=== PATIENT | female | born 1950 ===

== ENCOUNTER 2018-07-10 06:47 | Day surgery (SDC) | payer OTHER ==
[2018-06-26 10:48] VITALS: BMI 27.8
[~2018-07-10 06:47] MED LIST: Ciprofloxacin 0.3% OPTH SOLN OS SCH; Lactated Ringer's 500 ML IV ONE; Ofloxacin 0.3% Ophth Soln OS SCH; Tropicamide 0.5% Opht Sol OS SCH; acetaZOLAMIDE 500 mg SR Cap PO SCH
[2018-07-10] MEDS ORDERED: Carbachol 0.01% IO ONE (07:28)
[2018-07-10] MEDS ORDERED: Povidone Iodine Ophthalmic 5% Soln ONE (07:28)
[2018-07-10] MEDS ORDERED: Tetracaine 0.5% Ophth (OR ONLY) ONE (07:28)
[2018-07-10] MEDS ORDERED: Hyaluronidase Human, Recombi 150 U/ML VIAL ONE (07:29)
[2018-07-10] MEDS ORDERED: Chondroitin/Hyaluronate Opth Syringe KIT (0.55 ml-0.5 ml) IO ONE (07:29)
[2018-07-10] MEDS ORDERED: Tobramycin/Dexamethasone OPHT OINT ONE (07:29)
[2018-07-10] MEDS ORDERED: Tobramycin/Dexamethasone (Tobradex) Opth Sol (2.5 ml) ONE (07:29)
[2018-07-10] MEDS ORDERED: Lidocaine 2% MPF (5 ml) Inj ONE (07:36)
[2018-07-10] MEDS ORDERED: Lactated Ringer's 500 ML IV ONE ×2 (07:45→09:15)
[2018-07-10] MEDS ORDERED: Ketorolac Tromethamine 0.5% Opth Soln (3 ml) OS SCH (08:00)
[2018-07-10] MEDS ORDERED: Phenylephrine 2.5% Opht Soln OS SCH (08:00)
[2018-07-10] MEDS ORDERED: Midazolam 2 MG/2 ML VIAL ONE (08:55)
[2018-07-10 12:43] VITALS: BP 164/67; PULSE 51; RESP 18; TEMP 97.9; O2SAT 100
--- NOTE | 2018-07-10 21:35 | OP ---
PROCEDURE DATE: 07/10/2018 PREOPERATIVE DIAGNOSIS: Cataract, left eye. POSTOPERATIVE DIAGNOSIS: Cataract, left eye. OPERATIVE PROCEDURE: Phacoemulsification, left eye and insertion of posterior chamber lens implant. SURGEON: Joseph Mcrae MD CO-SURGEON: Braxton Garcia MD ANESTHESIA TYPE: Local intravenous sedation. DESCRIPTION OF PROCEDURE: The patient was brought into the operating room, placed in supine position, prepped and draped in the usual fashion for ophthalmic surgery. Lid speculum was inserted, lids and exposing globe. A side-port incision was made superiorly and inferiorly with a disposable sharp blade. Anterior chamber was filled with Viscoat. A near clear corneal incision was made temporally with a 2.75-mm keratome. Capsulorrhexis was then performed with Utrata forceps. Hydrodissection carried out with balanced salt solution. Nucleus was phacoemulsified. Remaining cortical fragments were removed with a split irrigation and aspiration system. The capsular sac was filled with Provisc. A posterior chamber lens was then injected into the capsular sac and rotated into horizontal position. Provisc was aspirated out of the anterior chamber. The pupil was constricted with Miochol. The wound was found to be watertight. Topical Betadine, Timoptic, and TobraDex ointment and pressure patch were applied. The patient tolerated the procedure well. Joseph Mcrae MD
== END 2018-07-10 10:10 | disposition home or self-care (01) ==
LOC: C.SDS 06:47
PROVIDERS: ATTEND Ophthalmology
DX: H25.12 Age-related nuclear cataract, left eye (principal); I10 Essential (primary) hypertension; E78.5 Hyperlipidemia, unspecified
CPT/HCPCS: 66984; J2250; J3010; J3470; J7120; V2632

== ENCOUNTER 2019-01-18 09:49 | Outpatient (CLI) | payer OTHER | END 2019-01-18 09:50 | disposition home or self-care (01) | LOC: C.MAMMO 09:49 | DX: Z12.31 Encounter for screening mammogram for malignant neoplasm of breast (principal) ==